=== PATIENT | female | born 1985 | race Caucasian/White ===

== ENCOUNTER → 2017-12-03 | Outpatient (REF) | payer OTHER ==
[2017-12-03 11:50] LABS: PLATELET COUNT, AUTOMATED 152 10^3/uL (150-450)
[2017-12-03 12:00] LABS: CONTROL LINE HCG INT CTR LINE PRESENT; HCG, SERUM QUALITATIVE NEGATIVE (NEGATIVE)
[2017-12-03 12:03] LABS: INR 0.96; PROTHROMBIN TIME 12.9 SECONDS (12.1-14.4)
[2017-12-03 12:04] LABS: PARTIAL THROMBOPLASTIN TIME 26.3 SECONDS (25.4-37.6)
== END ==
LOC: M LABDRAW1 10:35
DX: Z01.812 Encounter for preprocedural laboratory examination (principal)

== ENCOUNTER → 2019-04-12 | Outpatient (CLI) | payer OTHER ==
[~2019-04-12] MED LIST: CONRAY-43 43% 50ML VIAL (Q9960) As Ordered ONE; PROHANCE 279.3MG/ML 5ML VIAL (A9576) As Ordered ONE
--- NOTE | 2019-04-12 12:31 | REP ---
MR ARTHROGRAM RIGHT HIP: HISTORY: Pain in the right hip. Rule out labral tear. COMPARISON STUDIES: Comparison is made with CT imaging of the pelvis from July 12, 2013. . TECHNIQUE: Precontrast imaging includes coronal T1- and T2-weighted scans of both hips. Postcontrast small field of view high resolution axial, coronal and sagittal images are acquired in T1 and T2-weighted scans with fat saturation. MR ARTHROGRAPHIC FINDINGS: Pre-injection imaging demonstrates normal cortical and medullary bone signal intensity in the proximal femurs bilaterally. There is no evidence of avascular necrosis. There is a subcortical cyst along the medial aspect of the femoral head on the right. This measures 8 mm x 6 mm x 6 mm. This may be a synovial inclusion cyst. Head neck junction morphology is normal bilaterally. There is no evidence of significant hip joint effusion on either side. There is minimal T2 hyperintense edema at the greater trochanter bilaterally which may reflect minimal tendonitis. No bursal fluid collection is appreciated. On T2-weighted pre-injection imaging there is subtle inhomogeneous signal intensity in the articular cartilage which may reflect chondromalacia. There is a focal articular cartilage defect at 12-o'clock on the femoral head on the acetabular side of the hip articulation. Post-injection imaging shows good filling and enhancement of the hip articulation. No loose body is seen. No labral tear is seen. The ligamentum teres is intact. There is no evidence of internal enhancement of the subcortical cyst. IMPRESSION: 1. 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 No labral tear or loose body. 2. 8 mm subcortical cyst in the medial aspect of the femoral head on the right noted incidentally. 3. Thin streak of edema at the greater trochanter in the adjacent soft tissues bilaterally, question tendonitis. Electronically Signed by Jovanny Rose MD 04/12/2019 02:36 P
--- NOTE | 2019-04-12 19:37 | REP ---
Right hip arthrogram The procedure was performed under the direction supervision of Dr. Rose. The benefits and risks including but not limited to pain, infection, bleeding and anaphylaxis were explained to the patient and informed consent was obtained. The right femoral neck was localized using fluoroscopic guidance. Skin was prepped and draped in a sterile fashion. 1% lidocaine was used as a local anesthetic. Using fluoroscopic guidance a 22 gauge spinal needle was inserted and advanced to the femoral neck. 0.5 ml of Conray 43 was injected to verify placement. 11 ml of a solution containing 20 ml of sterile saline and 0.15 ml of ProHance was injected into the joint. The needle was removed and the patient was taken to MRI for postprocedural imaging. The patient tolerated the procedure well and there were no immediate complications. Less than 6 seconds of fluoro time was utilized for this procedure. Electronically Signed by ROSELYN Rodriguez 04/12/2019 04:10 P Electronically Signed by Jovanny Rose MD 04/12/2019 07:28 P
== END ==
LOC: M RADPRO 06:33
PROVIDERS: ATTEND Physician Assistant
DX: M94.251 Chondromalacia, right hip (principal); M85.68 Other cyst of bone, other site; M25.551 Pain in right hip
CPT/HCPCS: 27093; 73723; 77002; A9576; Q9960

== ENCOUNTER → 2019-04-28 | Outpatient (REF) | payer OTHER ==
[2019-04-28 14:00] LABS: BLOOD UREA NITROGEN 14 MG/DL (7-18); C REACTIVE PROTEIN QUANTITATIV 0.32 MG/DL (0.00-0.30); GLOMERULAR FILTRATION RATE > 60.0 (>60); RHEUMATOID FACTOR QUANT < 10.0 IU/ML (<15.0)
== END ==
LOC: M LABDRAW1 13:04
PROVIDERS: ATTEND Physician Assistant
DX: M53.3 Sacrococcygeal disorders, not elsewhere classified (principal)

== ENCOUNTER → 2019-07-19 | Outpatient (CLI) | payer OTHER ==
[2019-07-21 00:10] LABS: Lyme Disease IgG/IgM Antibodie <0.91 ISR (0.00-0.90); Lyme Disease IgM Ab Quantitati <0.80 index (0.00-0.79)
== END ==
LOC: M LAB 14:12
PROVIDERS: ATTEND Orthopaedic Surgery
DX: M25.551 Pain in right hip (principal)

== ENCOUNTER → 2019-07-19 | Outpatient (CLI) | payer OTHER | LOC: M LAB 14:15 | PROVIDERS: ATTEND Physician Assistant Surgical | DX: M70.62 Trochanteric bursitis, left hip (principal) ==

== ENCOUNTER → 2020-02-22 | Outpatient (CLI) | payer OTHER ==
--- NOTE | 2020-02-22 16:04 | REPVR ---
PROCEDURE INFORMATION: Exam: MR Lumbar Spine Without Contrast. Exam date and time: 02/22/2020 2:30 PM Age: 34 years old Clinical indication: Low back pain; Additional info: Spondylosis L region TECHNIQUE: Imaging protocol: Multiplanar magnetic resonance images of the lumbar spine without intravenous contrast. COMPARISON: No relevant prior studies available. FINDINGS: Vertebrae: No acute compression fracture is seen. Bone marrow signal is within normal limits. Spinal cord: The conus medullaris terminates at the L1 level. There is no evidence of arachnoiditis or cauda equina compression. L1-L2: There is mild diffuse circumferential disc bulging with a superimposed central disc protrusion. This is causing mild spinal canal stenosis. There is no significant neural foraminal narrowing. L2-L3: No significant disc disease. No significant spinal stenosis or neural foraminal narrowing. L3-L4: No significant disc disease.No significant spinal stenosis or neural foraminal narrowing. L4-L5: There is mild diffuse circumferential disc bulging with a superimposed left foraminal disc protrusion. Mild facet arthropathy is also present. This is causing minimal spinal canal stenosis and mild left neural foraminal narrowing. There is no right foraminal stenosis. L5-S1: There is mild facet arthropathy. No spinal canal or significant neural foraminal narrowing is present. Soft tissues: Unremarkable. IMPRESSION: Degenerative disc disease at the L1-L2 and L4-L5 levels as discussed above Electronically signed by: José Redd On 02/22/2020 16:04:51 PM
== END ==
LOC: M RAD 13:23
PROVIDERS: ATTEND Physician Assistant
DX: M47.816 Spondylosis without myelopathy or radiculopathy, lumbar region (principal); M51.26 Other intervertebral disc displacement, lumbar region; M51.36 Other intervertebral disc degeneration, lumbar region

== ENCOUNTER → 2020-11-07 | Outpatient (CLI) | payer OTHER, BC | LOC: M PLALAB 15:41 | PROVIDERS: ATTEND Advanced Practice Midwife | DX: Z34.81 Encounter for supervision of other normal pregnancy, first trimester (principal) ==

== ENCOUNTER → 2021-01-03 | Outpatient (CLI) | payer BC, OTHER ==
[2021-01-03 13:30] LABS: BASO % 0.4 % (0.0-1.0); EOS # 0.1 10^3/uL (0.0-0.5); EOS % 0.7 % (0.0-3.0); HEMATOCRIT 40.9 % (36.0-47.0); LYMPH # 2.3 10^3/uL (1.5-5.0); LYMPH % 22.9 % (24.0-44.0); MEAN CORPUSCULAR HEMOGLOBIN 31.3 pg (27.0-33.0); MEAN CORPUSCULAR HGB CONC 34.2 g/dl (32.0-36.5); MEAN CORPUSCULAR VOLUME 91.5 fl (80.0-96.0); MONO # 0.8 10^3/uL (0.0-0.8); MONO % 7.7 % (2.0-8.0); NEUTROPHILS # 6.8 10^3/uL (1.5-8.5); PLATELET COUNT, AUTOMATED 164 10^3/uL (150-450); RED BLOOD COUNT 4.47 10^6/uL (4.00-5.40); WHITE BLOOD COUNT 9.9 10^3/uL (4.0-10.0)
[2021-01-03 15:06] LABS: GC DNA AMPLIFICATION NEGATIVE (NEGATIVE)
[2021-01-03 15:08] LABS: HEPATITIS C VIRUS ABY INDEX < 0.0 INDEX (<0.8); HIV 1&2 SCREEN CENTAUR NEGATIVE (NEGATIVE)
== END ==
LOC: M PLALAB 10:22
PROVIDERS: ATTEND Obstetrics & Gynecology
DX: Z11.3 Encounter for screening for infections with a predominantly sexual mode of transmission (principal)

== ENCOUNTER → 2021-01-14 | Outpatient (CLI) | payer OTHER, BC ==
--- NOTE | 2021-01-14 16:46 | REP ---
INDICATION: MULTI OD ADVANCED MATERNAL AGE IN SECOND TRIMESTER. COMPARISON: None. TECHNIQUE: Real-time sonographic evaluation of the gravid uterus performed. FINDINGS: Estimated gestational age is22 weeks 1 day, EDC 05/19/2021. Today's measurements indicate appropriate growth. Presentation: Transverse Placenta posterior, grade 1, without evidence of placenta previa. heart rate is recorded at 149 beats per minute. Amniotic fluid is subjectively normal. Closed cervical length is measured at 4.1 cm. Biometry chart: BPD: 52 mm, 21 weeks 6 days, 44th percentile. HC: 197 mm, 21 weeks 6 days, 41st percentile AC: 177 mm, 22 weeks 4 days, 60th percentile Femur length: 37 mm, 21 weeks 5 days, 41st percentile HC to AC ratio: 1.11, normal range 1.04-1.23. Estimated weight: 42g, 46th percentile. anatomy: Cranium: Grossly normal Lateral Ventricles/Choroid Plexus: Grossly normal Posterior Fossa/Cerebellum: Grossly normal Nose/lips/profile: Grossly normal Four chamber heart: Not well seen due to position Right ventricular outflow tract: Not well seen due to position Left ventricular outflow tract: Not well seen due to position Left-sided stomach: Grossly normal Kidneys: Grossly normal Bladder: Grossly normal Cord Insertion: Grossly normal 3 vessel cord: Grossly normal Spine: Grossly normal IMPRESSION: Viable single intrauterine gestation as above. <Electronically signed by Cory Crooks > 01/14/21 0213
== END ==
LOC: M WHC 09:12
PROVIDERS: ATTEND Specialist
DX: Z36.3 Encounter for antenatal screening for malformations (principal); O09.522 Supervision of elderly multigravida, second trimester; Z3A.22 22 weeks gestation of pregnancy

== ENCOUNTER → 2021-02-13 | Outpatient (CLI) | payer OTHER, BC ==
--- NOTE | 2021-02-14 05:59 | REP ---
INDICATION: F/U ANATOMY COMPARISON: 01/14/2021 TECHNIQUE: Transabdominal obstetrical ultrasound with color Doppler evaluation. FINDINGS: Examination demonstrates a single live intrauterine in cephalic presentation. motion is identified by technologist. Placenta is noted posterior and grade 1 without evidence for placenta previa or abruption. Amniotic fluid volume is normal. Cervix measures 4.5 cm in length and appears closed.. Selected gestational age: 26 weeks 3 days with KLAUDIA 05/19/2021. Gestational age by current measurements 25 weeks 6 days with KLAUDIA 05/23/2021. FHR equals 142 beats per minute. Estimated weight 849 grams (17thpercentile). Anatomical assessment demonstrates normal structures including four-chamber heart and cardiac ventricular outflow tracts. IMPRESSION: Single live intrauterine in cephalic presentation demonstrating appropriate estimated weight/growth. In conjunction with prior examination anatomical assessment is complete and normal. <Electronically signed by Jony Weston > 02/14/21 [id number]
== END ==
LOC: M WHC 10:40
PROVIDERS: ATTEND Advanced Practice Midwife
DX: Z34.82 Encounter for supervision of other normal pregnancy, second trimester (principal)

== ENCOUNTER → 2021-02-13 | Outpatient (CLI) | payer OTHER ==
[2021-02-13 13:44] LABS: HEMATOCRIT 39.3 % (36.0-47.0); HEMOGLOBIN 13.3 g/dl (12.0-15.5); MEAN CORPUSCULAR HGB CONC 33.8 g/dl (32.0-36.5); MEAN CORPUSCULAR VOLUME 94.5 fl (80.0-96.0); PLATELET COUNT, AUTOMATED 135 10^3/uL (150-450); RED BLOOD COUNT 4.16 10^6/uL (4.00-5.40); WHITE BLOOD COUNT 7.7 10^3/uL (4.0-10.0)
== END ==
LOC: M PLALAB 11:18
PROVIDERS: ATTEND Advanced Practice Midwife
DX: Z34.92 Encounter for supervision of normal pregnancy, unspecified, second trimester (principal)

== ENCOUNTER 2021-02-23 14:47 | Inpatient (IN) | payer MEDICAID, OTHER ==
[~2021-02-23] VITALS: Ht 162.6 cm; Wt 83.1 kg
--- NOTE | 2021-02-23 16:58 | REP ---
INDICATION: L leg pain, 28 weeks preg COMPARISON: None. TECHNIQUE: Crooks scale and color Doppler evaluation using linear high frequency transducer. FINDINGS: Ultrasound examination of the left lower extremity demonstrates extensive occlusive thrombus extending from the common femoral vein distally through the superficial femoral and popliteal veins as well as with extension into the greater saphenous vein and deep femoral vein. Right common femoral vein is patent. IMPRESSION: Extensive left lower extremity occlusive thrombus <Electronically signed by Jony Weston > 02/23/21 [id number]
[2021-02-23 17:38] LABS: BASO % 0.2 % (0.0-1.0); EOS # 0.1 10^3/uL (0.0-0.5); EOS % 0.9 % (0.0-3.0); HEMOGLOBIN 11.5 g/dl (12.0-15.5); LYMPH # 1.8 10^3/uL (1.5-5.0); LYMPH % 17.4 % (24.0-44.0); MEAN CORPUSCULAR HEMOGLOBIN 31.6 pg (27.0-33.0); MEAN CORPUSCULAR HGB CONC 33.8 g/dl (32.0-36.5); MEAN CORPUSCULAR VOLUME 93.4 fl (80.0-96.0); MONO # 0.7 10^3/uL (0.0-0.8); MONO % 6.3 % (2.0-8.0); NEUTROPHILS # 7.8 10^3/uL (1.5-8.5); NEUTROPHILS % 74.5 % (36.0-66.0); PLATELET COUNT, AUTOMATED 149 10^3/uL (150-450); RED BLOOD COUNT 3.64 10^6/uL (4.00-5.40); WHITE BLOOD COUNT 10.4 10^3/uL (4.0-10.0)
[2021-02-23 17:49] LABS: INR 1.04; PROTHROMBIN TIME 14.1 SECONDS (12.7-14.5)
[2021-02-23 17:50] LABS: PARTIAL THROMBOPLASTIN TIME 25.9 SECONDS (25.9-37.0)
[2021-02-23] MEDS ORDERED: MORPHINE 2 MG/ML 1ML VIAL (J2270) IV ONE (17:50)
[2021-02-23] MEDS ORDERED: ONDANSETRON 4MG/2ML VIAL IV ONE (17:50)
[2021-02-23 18:04] LABS: ALBUMIN 2.5 GM/DL (3.2-5.2); ALT/SGPT 19 U/L (12-78); BILIRUBIN,TOTAL 0.5 MG/DL (0.2-1.0); BLOOD UREA NITROGEN 9 MG/DL (7-18); CALCIUM LEVEL 9.1 MG/DL (8.5-10.1); CARBON DIOXIDE LEVEL 23 MEQ/L (21-32); CHLORIDE LEVEL 105 MEQ/L (98-107); CREATININE FOR GFR 0.58 MG/DL (0.55-1.30); GLOMERULAR FILTRATION RATE > 60.0 (>60); GLUCOSE, FASTING 109 MG/DL (70-100); NT-PRO BNP 36 PG/ML (<125); POTASSIUM SERUM 4.1 MEQ/L (3.5-5.1); SODIUM LEVEL 136 MEQ/L (136-145); TOTAL PROTEIN 6.4 GM/DL (6.4-8.2)
[2021-02-23] MEDS ORDERED: PRENCHW PO (19:00)
[2021-02-23] MEDS ORDERED: HOME MED LIST COMPLETE! XX SCH (19:05)
[2021-02-23] MEDS ORDERED: HEPARIN SOD (PORCINE) 5000UNITS/ML 1ML VIAL/SYRINGE IV ONE (19:10)
[2021-02-23] MEDS ORDERED: HEPARIN SOD (PORCINE) 5000UNITS/ML 1ML VIAL/SYRINGE IV PRN (19:10)
[2021-02-23] MEDS: LR 1,000 ML IV SCH (19:21)
--- NOTE | 2021-02-23 19:27 | CR.PDOC ---
General Date of Consultation: Feb 23, 2021 Referring Provider: DONY GOODMAN DO Consultation REASON FOR CONSULTATION/CHIEF COMPLAINT: Heparin management. HISTORY OF PRESENT ILLNESS: Mrs. Bradshaw is a 35-year-old female with osteoarthritis of the hip who presents with worsening left leg pain. Patient is currently 28 weeks with her third . About a few days ago, she started to have left leg pain. She denies any recent travel, surgeries, hospitalizations, or trauma to the left leg. She came into the ED for evaluation. While here, she was afebrile and normotensive. She was tachycardic at 117 but no hypoxia. Ultrasound of the left leg demonstrated extensive left lower extremity occlusive thrombus. As patient was 28 weeks , AUTOMOTIVE PARTS INTERPRETER was contacted. In addition, vascular surgery, Dr. Nunez, was consulted. Dr. Nunez recommended heparin bolus with heparin drip, Oliver wrap from toes up, and leg elevation. He will evaluate the patient tonight and tomorrow morning. If there is no improvement in the leg, he will consider possible surgery. AUTOM[employer]IVE [employer]S INTERPRETER requested hospitalist service to manage heparin drip. I spoke with AUTOMOTIVE PARTS INTERPRETER and they are okay with heparin drip. When I saw patient in the ED, she appeared comfortable. She had just gotten morphine. Her left leg had pitting edema and was swollen. Right leg did not have any pitting edema. Looking at her toes on the left, they had a dusky bluish appearance. There is a little bit of discoloration on the right as well. She had good pedal pulses. Hospital service will be consulted to help manage the heparin drip. ALLERGIES: Please see below. HOME MEDICATIONS: Please see below. PAST MEDICAL HISTORY: 1. Osteoarthritis PAST SURGICAL HISTORY: Denies any past surgical history FAMILY HISTORY: Father: History of cancer, 5 MIs, and 3 CVAs Mother: History of hyperlipidemia SOCIAL HISTORY: Tobacco use: She quit smoking 1 year ago ETOH: She stopped drinking alcohol when she got . Prior to , she occasionally drinks Illicit drug use: Denies any recreational drug use REVIEW OF SYSTEMS: CONSTITUTIONAL: Denies any fever. Reported an episode of chills yesterday. ENT: Denies sore throat. RESPIRATORY: Denies shortness of breath. Denies cough. CARDIOVASCULAR: Denies chest pain. GASTROINTESTINAL: Reports related abdominal pain. GENITOURINARY: Denies dysuria. CUTANEOUS: Denies rashes. MUSCULOSKELETAL: Reports swelling and tenderness in her left leg. NEUROLOGICAL: Reports paresthesias in her left leg. PSYCHOLOGICAL: Denies anxiety. Denies depression. PHYSICAL EXAMINATION: VITAL SIGNS: Please see below. GENERAL: Comfortable, in no apparent distress. HEENT: EOMI, sclera clear. NECK: Supple. RESPIRATORY: Lungs clear to auscultation bilaterally, no rales, wheeze or rhonchi. CARDIOVASCULAR: Tachycardic but regular. ABDOMEN: Soft, nontender, no guarding or rebound tenderness. Normal bowel sounds. MUSCLE SKELETAL: Left leg 2+ pitting edema. No pitting edema on right leg NEUROLOGICAL: CN 3-12 grossly intact, no focal deficits noted. PSYCHOLOGICAL: Normal mood and affect LABORATORY DATA: Please see below. ASSESSMENT/PLAN: 1. Left leg DVT Vascular surgery following Recommending heparin bolus with heparin drip, Oliver wrapping from feet to toes, and leg elevation If there is no improvement, vascular surgery would consider procedure Start heparin drip Monitor for signs of bleeding Monitor CBC Hypercoagulable work-up initiated 2. AUTOM[employer]S INTERPRETER is primary 3. Osteoarthritis Patient was following with orthopedic surgery for osteoarthritis of the hips Supportive care and pain control 4. DVT prophylaxis Currently on heparin drip Thank you for consulting us. We will continue following along. Vital Signs/I&O Vital Signs Date Time Temp Pulse Resp B/P (MAP) Pulse Ox O2 Delivery O2 Flow Rate FiO2 02/23/21 18:21 18 02/23/21 14:48 98.2 117 135/72 (93) 100 Room Air Laboratory Data Labs 24H Laboratory Tests 2 02/23/21 17:24: Immature Granulocyte % (Auto) 0.7, Neutrophils (%) (Auto) 74.5H, Lymphocytes (%) (Auto) 17.4L, Monocytes (%) (Auto) 6.3, Eosinophils (%) (Auto) 0.9, Basophils (%) (Auto) 0.2, Neutrophils # (Auto) 7.8, Lymphocytes # (Auto) 1.8, Monocytes # (Auto) 0.7, Eosinophils # (Auto) 0.1, Basophils # (Auto) 0.0, Nucleated Red Bloo d Cells % (auto) 0.0, Prothrombin Time 14.1H, Prothromb Time International Ratio 1.04, Activated Partial Thromboplast Time 25.9, Anion Gap 8, Glomerular Filtration Rate > 60.0, Calcium Level 9.1, Total Bilirubin 0.5, Aspartate Amino Transf (AST/SGOT) 13, Alanine Aminotransferase (ALT/SGPT) 19, Alkaline Phosphatase 117, JP-Sja-S-Type Natriuretic Peptide 36, Total Protein 6.4, Albumin 2.5L, Albumin/Globulin Ratio 0.6L, Coronavirus (COVID-19)(PCR) NEGATIVE CBC/BMP Laboratory Tests 02/23/21 17:24 Allergies Coded Allergies: No Known Allergies (Unverified , 02/23/21) Home Medications Scheduled Pnv No.118/Iron Fumarate/FA ( 19 Chewable Tablet) 1 Each Tab.chew, 1 CHW PO DAILY, (Reported) MAJO SAINZ DO Feb 23, 2021 19:27
--- NOTE | 2021-02-23 19:34 | ECGEPIP ---
[facility] - ED Test Date: 2021-02-23 Pat Name: RADHA CARMICHAEL Department: Room: - Gender: Female Density Control Puncher: FRANCHESCA : 1985 Requested By: Lyn Kruse PA-C Order Number: [id number] Reading MD: Anamika Friedman Measurements Intervals [place] Rate: 96 P: 51 MA: 150 QRS: 35 QRSD: 72 T: 29 QT: 342 QTc: 432 Interpretive Statements Normal sinus rhythm NSTTW abnormalities No prior Electronically Signed on 02-23-2021 19:34:12 EST by Anamika Friedman
--- NOTE | 2021-02-23 19:36 | HPEPDOC ---
Obstetrical History & Physical General Date of Admission History of Present Illness PAVING BLOCK CUTTER H&P 35-year-old -0-0-2 at 27+6 weeks gestation. She presented to the emergency department with worsening left lower extremity pain and swelling over the past several days. Her work-up in the ED revealed evidence of a large left deep vein thrombosis (see official report). She has minor intermittent pelvic pain, but denies any contractions. Denies any vaginal bleeding or loss of fluid. She is reporting her baby's movement on a frequent basis. No headache, shortness of breath, chest pain, fever, chills. PMH: osteoarthritis SH:none Meds: PNV All: NKDA HOT PACKER: No STI OB: 2002,. 2009,. Both uncomplicated. Sochx: former smoker; states she quit 6-12 months prior to Past Medical History Allergies Coded Allergies: No Known Allergies (Unverified , 02/23/21) Medications Scheduled Pnv No.118/Iron Fumarate/FA ( 19 Chewable Tablet) 1 Each Tab.chew, 1 CHW PO DAILY Physical Examination Physical Examination Normotensive, mild tachycardia, afebrile. O2 sat on RA 96-100% GENERAL: Alert and oriented times three.. ABDOMEN: Gravid and non-tender to touch. Uterine fundal height c/w/d and nontender. EXTREMITIES: left lower ext edema, 2+ pitting edema, +Joey's on left. EFM: heart rate Category 1; reassuring. [place]: no evidence of contraction pattern. Left lower extremity DVT / US INDICATION: L leg pain, 28 weeks preg COMPARISON: None. TECHNIQUE: Crooks scale and color Doppler evaluation using linear high frequency transducer. FINDINGS: Ultrasound examination of the left lower extremity demonstrates extensive occlusive thrombus extending from the common femoral vein distally through the superficial femoral and popliteal veins as well as with extension into the greater saphenous vein and deep femoral vein. Right common femoral vein is patent. IMPRESSION: Extensive left lower extremity occlusive thrombus Vital Signs/I&O Vital Signs Date Time Temp Pulse Resp B/P (MAP) Pulse Ox O2 Delivery O2 Flow Rate FiO2 02/23/21 18:21 18 02/23/21 14:48 98.2 117 135/72 (93) 100 Room Air Laboratory Data 24H LABS Laboratory Tests 2 02/23/21 17:24: Immature Granulocyte % (Auto) 0.7, Neutrophils (%) (Auto) 74.5H, Lymphocytes (%) (Auto) 17.4L, Monocytes (%) (Auto) 6.3, Eosinophils (%) (Auto) 0.9, Basophils (%) (Auto) 0.2, Neutrophils # (Auto) 7.8, Lymphocytes # (Auto) 1.8, Monocytes # (Auto) 0.7, Eosinophils # (Auto) 0.1, Basophils # (Auto) 0.0, Nucleated Red Blood Cells % (auto) 0.0, Prothrombin Time 14.1H, Prothromb Time International Ratio 1.04, Activated Partial Thromboplast Time 25.9, Anion Gap 8, Glomerular Filtration Rate > 60.0, Calcium Level 9.1, Total Bilirubin 0.5, Aspartate Amino Transf (AST/SGOT) 13, Alanine Aminotransferase (ALT/SGPT) 19, Alkaline Phosphatase 117, HB-Xgt-L-Type Natriuretic Peptide 36, Total Protein 6.4, Albumin 2.5L, Albumin/Globulin Ratio 0.6L, Coronavirus (COVID-19)(PCR) NEGATIVE CBC/BMP Laboratory Tests 02/23/21 17:24 Assessment/Plan Assessment 35yo at 27+6 weeks EGA with newly diagnosed VTE/left lower ext DVT. Maternal status currently stable. status reassuring. Plan -Admit to PCU -Will collaborate with Hospitalist and Vascular Surgery ; defer to these consultants for initial anticoagulation plan/dosing. Patient counseled on acceptable safety profile and on risks, benefits, indications, and alternatives of unfractionated heparin during . -cEFM/[place] every 8 hours or more frequent as indicated. -Of note, a full thrombophilia lab panel was drawn in the ED. The usefulness of protein C and S as well as antithrombin III levels may be inhibited by the fact that this patient is . She should be retested no sooner than 3 months /post- and/or post-anticoagulation. DONY GOODMAN DO Feb 23, 2021 19:36
[2021-02-23] MEDS: HEPARIN DRIP 25,000 UNITS in IV 1 EA IV SCH ×2 (19:48→22:18)
--- NOTE | 2021-02-23 21:22 | CR.PDOC ---
General Date of Consultation: Feb 23, 2021 Attending Physician: RAVINDRA RUTHERFORD MD Consultation REASON FOR CONSULTATION/CHIEF COMPLAINT: LLE pain/swelling HISTORY OF PRESENT ILLNESS: 35 yo female, 28 wks with child #3, presents with 24hrs of worsening LLE swelling/pain. Denies any other symptoms. Denies CP/SOB. No history of DVT/PE in patient or family members. No issues with prior pregnancies with regards to DVT. Previous children via vaginal delivery. ALLERGIES: Please see below. HOME MEDICATIONS: Please see below. PAST MEDICAL HISTORY: 1. Hip Dysplasia PAST SURGICAL HISTORY: N/A FAMILY HISTORY: Nothing relevant SOCIAL HISTORY: Children: 2 REVIEW OF SYSTEMS: Negative except as stated PHYSICAL EXAMINATION: LLE: Moderate edema, palpable pulses, motor/sensory intact LABORATORY DATA: Please see below. IMAGING: LLE Venous Duplex demonstrates acute LLE DVT from left CFV distally ASSESSMENT/PLAN: 1. 35 yo female with acute LLE DVT without signs of phlegmasia -Full dose AC with IV heparin bolus and gtt -bipin wrap/elevate LLE -will re-eval in AM with plan for d/c on lovenox vs pursuing percutaneous intervention Vital Signs/I&O Vital Signs Date Time Temp Pulse Resp B/P (MAP) Pulse Ox O2 Delivery O2 Flow Rate FiO2 02/23/21 19:18 98.3 92 18 121/70 (87) 100 Room Air Laboratory Data Labs 24H Laboratory Tests 2 02/23/21 17:24: Immature Granulocyte % (Auto) 0.7, Neutrophils (%) (Auto) 74.5H, Lymphocytes (%) (Auto) 17.4L, Monocytes (%) (Auto) 6.3, Eosinophils (%) (Auto) 0.9, Basophils (%) (Auto) 0.2, Neutrophils # (Auto) 7.8, Lymphocytes # (Auto) 1.8, Monocytes # (Auto) 0.7, Eosinophils # (Auto) 0.1, Basophils # (Auto) 0.0, Nucleated Red Blood Cells % (auto) 0.0, Prothrombin Time 14.1H, Prothromb Time International Ratio 1.04, Activated Partial Thromboplast Time 25.9, Anion Gap 8, Glomerular Filtration Rate > 60.0, Calcium Level 9.1, Total Bilirubin 0.5, Aspartate Amino Transf (AST/SGOT) 13, Alanine Aminotransferase (ALT/SGPT) 19, Alkaline Phosphatase 117, LY-Jvx-O-Type Natriuretic Peptide 36, Total Protein 6.4, Albumin 2.5L, Albumin/Globulin Ratio 0.6L, Coronavirus (COVID-19)(PCR) NEGATIVE 02/23/21 20:08: Activated Partial Thromboplast Time 180.3*H CBC/BMP Laboratory Tests 02/23/21 17:24 Allergies Coded Allergies: No Known Allergies (Unverified , 02/23/21) Home Medications Scheduled Pnv No.118/Iron Fumarate/FA ( 19 Chewable Tablet) 1 Each Tab.chew, 1 CHW PO DAILY, (Reported) RAVINDRA RUTHERFORD MD Feb 23, 2021 21:22
[2021-02-23 21:35] VITALS: BP 118/70
[2021-02-24] VITALS: BP 113/62
[2021-02-24] MEDS: MORPHINE 2 MG/ML 1ML VIAL (J2270) IV PRN ×3 (01:20→11:06)
[2021-02-24 03:50] LABS: HEMATOCRIT 29.9 % (36.0-47.0); HEMOGLOBIN 10.2 g/dl (12.0-15.5); MEAN CORPUSCULAR HGB CONC 34.1 g/dl (32.0-36.5); MEAN CORPUSCULAR VOLUME 93.7 fl (80.0-96.0); PLATELET COUNT, AUTOMATED 145 10^3/uL (150-450); RED BLOOD COUNT 3.19 10^6/uL (4.00-5.40); WHITE BLOOD COUNT 8.6 10^3/uL (4.0-10.0)
[2021-02-24 04:00] VITALS: BP 108/62
[2021-02-24] MEDS: LR 1,000 ML IV SCH ×2 (04:01→04:46)
[2021-02-24 04:40] LABS: BLOOD UREA NITROGEN 11 MG/DL (7-18); CALCIUM LEVEL 8.4 MG/DL (8.5-10.1); CARBON DIOXIDE LEVEL 22 MEQ/L (21-32); CHLORIDE LEVEL 106 MEQ/L (98-107); CREATININE FOR GFR 0.57 MG/DL (0.55-1.30); GLOMERULAR FILTRATION RATE > 60.0 (>60); GLUCOSE, FASTING 106 MG/DL (70-100); SODIUM LEVEL 135 MEQ/L (136-145)
[2021-02-24 07:53] VITALS: BP 108/66
--- NOTE | 2021-02-24 11:17 | IPNPDOC ---
Date Seen The patient was seen on 02/24/21. Subjective 35 yo female, 28wks with acute LLE DVT. Improvement in pain/swelling overnight since initiation of anticoagulation. Physical Examination General Exam: Positive: Alert, No Acute Distress; Negative: Cooperative, Mild Distress, Moderate Distress, Severe Distress, Other Eye Exam: Negative: PERRLA, Conjunctiva & lids normal, EOMI, Sclera icteric, Ptosis, Other Eye Symptoms ENT Exam: Negative: Atraumatic, Mucous membr. moist/pink, Pharynx Normal, Tongue Midline, Pharyngeal Edema, Nares Patent, Tympanic Membranes Normal, Ext Auditory Canal Nml, Pinna Normal, Other ENT Neck Exam: Negative: Supple, JVD, thyromegaly, +2 carotid pulse wo bruit, Lymphadenopathy, Other Chest Exam: Negative: Clear to auscultation, Normal air movement, Rales, Rhonchi, Wheezing, Diminished, Other Heart Exam: Negative: Rate Normal, Tachycardic, Bradycardic, Regular Rhythm, Irregular Rhythm, Normal S1, Normal S2, Gallops, Murmurs, Rubs, Other Telemetry: Negative: No significant arrhythmia, Sinus, Atrial fibrillation, Tachycardia, Bradycardia, AV Block, Pause, SV Tach, PVCs, PACs, Asystole, Other Telemetry: Abdomen Exam: Positive: Normal bowel sounds Extremity Exam: Positive: Swelling (LLE swelling); Negative: Clubbing, Cyanosis, Edema, Normal pulses, Tenderness, Other Skin Exam: Positive: Nl turgor and temperature; Negative: Rash, Breakdown Neuro Exam: Negative: Normal Gait, Normal Speech, Strength at 5/5 X4 ext, Normal Tone, Sensation Intact, Cranial Nerves 3-12 NL, Reflexes 2+, Other Psych Exam: Negative: Mental status NL, Mood NL, Anxiety, Memory Intact, Oriented x 3, Other Assessment/Plan 35 yo female with acute LLE DVT Ok to transition to therapeutic lovenox and discharge home Continue LLE compression/elevation f/u with [facility] and/or hematology will require 3-6 months of anticoagulation If leg swelling/pain persists in 3-6 months, recommend re-eval by Vascular Surgeon for possible percutaneous intervention for Post-Thrombotic syndrome VS, I&O, 24H, Fishbone Vital Signs/I&O Vital Signs Date Time Temp Pulse Resp B/P (MAP) Pulse Ox O2 Delivery O2 Flow Rate FiO2 12/20/21 07:53 98.0 91 16 108/66 (80) 97 Room Air I&O- Last 24 Hours up to 6 AM 02/24/21 06:00 Intake Total 610 ml Output Total 300 ml Balance 310 ml Laboratory Data 24H LABS Laboratory Tests 2 02/23/21 17:24: Immature Granulocyte % (Auto) 0.7, Neutrophils (%) (Auto) 74.5H, Lymphocytes (%) (Auto) 17.4L, Monocytes (%) (Auto) 6.3, Eosinophils (%) (Auto) 0.9, Basophils (%) (Auto) 0.2, Neutrophils # (Auto) 7.8, Lymphocytes # (Auto) 1.8, Monocytes # (Auto) 0.7, Eosinophils # (Auto) 0.1, Basophils # (Auto) 0.0, Nucleated Red Blood Cells % (auto) 0.0, Prothrombin Time 14.1H, Prothromb Time International Ratio 1.04, Activated Partial Thromboplast Time 25.9, Anion Gap 8, Glomerular Filtration Rate > 60.0, Calcium Level 9.1, Total Bilirubin 0.5, Aspartate Amino Transf (AST/SGOT) 13, Alanine Aminotransferase (ALT/SGPT) 19, Alkaline Phosphatase 117, EL-Jsu-H-Type Natriuretic Peptide 36, Total Protein 6.4, Albumin 2.5L, Albumin/Globulin Ratio 0.6L, Coronavirus (COVID-19)(PCR) NEGATIVE 02/23/21 20:08: Activated Partial Thromboplast Time 180.3*H 02/24/21 03:34: Nucleated Red Blood Cells % (auto) 0.0, Activated Partial Thromboplast Time 39.2H, Anion Gap 7L, Glomerular Filtration Rate > 60.0, Calcium Level 8.4L CBC/BMP Laboratory Tests 02/23/21 17:24 02/24/21 03:34 RAVINDRA RUTHERFORD MD Feb 24, 2021 11:17
[2021-02-24 12:00] VITALS: BP 125/74
[2021-02-24] MEDS ORDERED: ENOXAPARIN 80MG/0.8ML SYRINGE (J1650 PER 10MG) SC SCH (12:00)
[2021-02-24] MEDS ORDERED: LOVE0.6I2 SC (12:48)
[2021-02-24] MEDS ORDERED: BD SMIS8 XX (12:48)
[2021-02-24] MEDS ORDERED: ALCO1PAD EX (12:48)
--- NOTE | 2021-02-24 14:27 | DS.PDOC ---
Discharge Summary General Date of Admission Feb 23, 2021 at 18:56 Date of Discharge 02/24/21 Attending Physician: DONY GOODMAN DO Specialist/Consultants Involve: RAVINDRA RUTHERFORD MD Discharge Summary PROCEDURES PERFORMED DURING STAY: [None]. ADMITTING DIAGNOSES: 1. . DISCHARGE DIAGNOSES: 1. . COMPLICATIONS/CHIEF COMPLAINT: 27-28 Completed Wks Of Gestation, Dvt. HISTORY OF PRESENT ILLNESS: . HOSPITAL COURSE: . DISCHARGE MEDICATIONS: Please see below. ALLERGIES: Please see below. PHYSICAL EXAMINATION ON DISCHARGE: VITAL SIGNS: Please see below. GENERAL: HEENT: NECK: CARDIOVASCULAR EXAMINATION: RESPIRATORY EXAMINATION: ABDOMINAL EXAMINATION: EXTREMITIES: SKIN: NEUROLOGICAL EXAMINATION: PSYCHIATRIC EXAMINATION: LABORATORY DATA: Please see below. IMAGING: PROGNOSIS: ACTIVITY: [As tolerated]. DIET: DISCHARGE PLAN: DISPOSITION: . DISCHARGE INSTRUCTIONS: 1. . ITEMS TO FOLLOWUP ON ON OUTPATIENT: 1. . DISCHARGE CONDITION: [Stable]. TIME SPENT ON DISCHARGE: minutes. Vital Signs/I&Os Vital Signs Date Time Temp Pulse Resp B/P (MAP) Pulse Ox O2 Delivery O2 Flow Rate FiO2 02/24/21 12:00 97.8 94 18 125/74 (91) 98 Room Air I&O- Last 24 Hours up to 6 AM 02/24/21 06:00 Intake Total 610 ml Output Total 300 ml Balance 310 ml Laboratory Data Labs 24H Laboratory Tests 2 02/23/21 17:24: Immature Granulocyte % (Auto) 0.7, Neutrophils (%) (Auto) 74.5H, Lymphocytes (%) (Auto) 17.4L, Monocytes (%) (Auto) 6.3, Eosinophils (%) (Auto) 0.9, Basophils (%) (Auto) 0.2, Neutrophils # (Auto) 7.8, Lymphocytes # (Auto) 1.8, Monocytes # (Auto) 0.7, Eosinophils # (Auto) 0.1, Basophils # (Auto) 0.0, Nucleated Red Blood Cells % (auto) 0.0, Prothrombin Time 14.1H, Prothromb Time International Ratio 1.04, Activated Partial Thromboplast Time 25.9, Anion Gap 8, Glomerular Filtration Rate > 60.0, Calcium Level 9.1, Total Bilirubin 0.5, Aspartate Amino Transf (AST/SGOT) 13, Alanine Aminotransferase (ALT/SGPT) 19, Alkaline Phosphatase 117, QR-Xtu-L-Type Natriuretic Peptide 36, Total Protein 6.4, Albumin 2.5L, Albumin/Globulin Ratio 0.6L, Coronavirus (COVID-19)(PCR) NEGATIVE 02/23/21 20:08: Activated Partial Thromboplast Time 180.3*H 02/24/21 03:34: Nucleated Red Blood Cells % (auto) 0.0, Activated Partial Thromboplast Time 39.2H, Anion Gap 7L, Glomerular Filtration Rate > 60.0, Calcium Level 8.4L 02/24/21 10:57: Activated Partial Thromboplast Time 55.7H CBC/BMP Laboratory Tests 02/23/21 17:24 02/24/21 03:34 Discharge Medications Scheduled Alcohol Antiseptic Pads (Alcohol Prep Pads) 1 Each Med..pad, 70 % EX BID Enoxaparin Sodium (Lovenox) 80 Mg/0.8 Ml Syringe, 80 MG SC Q12H Pnv No.118/Iron Fumarate/FA ( 19 Chewable Tablet) 1 Each Tab.chew, 1 CHW PO DAILY, (Reported) Allergies Coded Allergies: No Known Allergies (Unverified , 02/23/21) JING MCNEAL CNM Feb 24, 2021 14:27
[2021-02-26 11:20] LABS: DRVV SCREEN 44.9 SEC
[2021-02-26 11:24] LABS: PTT LUPUS TYPE ANTICOAG SCREEN 1.2 (0-1.2)
[2021-02-26 11:31] LABS: DRVV CONFIRM 36.1 SEC; LUPUS CONFIRM RATIO 0.9
[2021-02-26 11:33] LABS: NORMALIZED RATIO 1.33 (0.00-1.20)
== END 2021-02-24 17:10 | disposition home or self-care (01) | DRG 566 ==
LOC: M ED 14:47 → M ED INP 18:56 → ENRESERV 19:40 → M PCU 21:33
PROVIDERS: ADMIT Obstetrics & Gynecology; ATTEND Obstetrics & Gynecology
DX: O22.32 Deep phlebothrombosis in pregnancy, second trimester (principal); I82.412 Acute embolism and thrombosis of left femoral vein; I82.432 Acute embolism and thrombosis of left popliteal vein; Z3A.27 27 weeks gestation of pregnancy; Z87.891 Personal history of nicotine dependence; M16.0 Bilateral primary osteoarthritis of hip; O26.892 Other specified pregnancy related conditions, second trimester

== ENCOUNTER → 2021-04-10 | Outpatient (CLI) | payer OTHER ==
[~2021-04-10] MED LIST changes: +ALCO1PAD EX; +BD SMIS8 XX; -CONRAY-43 43% 50ML VIAL (Q9960) As Ordered ONE; +LOVE0.6I2 SC; +PRENCHW PO; -PROHANCE 279.3MG/ML 5ML VIAL (A9576) As Ordered ONE
== END ==
LOC: M LAB 07:49
PROVIDERS: ATTEND Advanced Practice Midwife
DX: O99.810 Abnormal glucose complicating pregnancy (principal)

== ENCOUNTER → 2021-04-21 | Outpatient (REF) | payer OTHER ==
[~2021-04-21] MED LIST changes: +EXCETAB33 PO
== END ==
LOC: M SFHCWAGY 16:54
PROVIDERS: ATTEND Obstetrics & Gynecology
DX: Z36.89 Encounter for other specified antenatal screening (principal); Z3A.36 36 weeks gestation of pregnancy

== ENCOUNTER → 2021-04-24 | Outpatient (CLI) | payer OTHER ==
[2021-04-24 10:46] LABS: INR 0.9; PROTHROMBIN TIME 12.6 SECONDS (12.7-14.5)
[2021-04-24 10:47] LABS: PARTIAL THROMBOPLASTIN TIME 33.8 SECONDS (25.9-37.0)
== END ==
LOC: M PLALAB 08:45
PROVIDERS: ATTEND Obstetrics & Gynecology
DX: D68.51 Activated protein C resistance (principal)

== ENCOUNTER 2021-05-12 07:45 | Inpatient (IN) | payer OTHER ==
[2021-05-12] VITALS (14 sets, daily range): BP systolic 111–140; BP diastolic 66–86
[~2021-05-12] VITALS: Ht 162.6 cm; Wt 84.3 kg
[2021-05-12] MEDS ORDERED: EXCETAB33 PO (08:05)
[2021-05-12] MEDS ORDERED: LACTATED RINGER'S 1000 ML IV STA ×2 (08:48→16:22)
[2021-05-12] MEDS ORDERED: METHYLERGONOVINE MALEATE 0.2 MG/ML VIAL (J2210) IM PRN ×2 (08:50→17:40)
[2021-05-12] MEDS ORDERED: TRANEXAMIC ACID INJection 1,000 MG in NS 100 ML IV PRN (08:50)
[2021-05-12] MEDS ORDERED: LIDOCAINE 1% MDV 20ML VIAL INFIL PRN (08:50)
[2021-05-12] MEDS ORDERED: OXYTOCIN DRIP 30 UNITS in IV 1 EA IV PRN (08:50)
[2021-05-12] MEDS ORDERED: CARBOPROST TROMETHAMINE 250 MCG/ML AMP IM PRN (08:50)
[2021-05-12] MEDS ORDERED: HOME MED LIST COMPLETE! XX SCH (08:55)
[2021-05-12] MEDS ORDERED: miSOPROStol 50MCG 1/2 TABLET PO ONE (09:05)
[2021-05-12 09:38] LABS: HEMATOCRIT 37.9 % (36.0-47.0); HEMOGLOBIN 13.2 g/dl (12.0-15.5); MEAN CORPUSCULAR HEMOGLOBIN 31.7 pg (27.0-33.0); MEAN CORPUSCULAR HGB CONC 34.8 g/dl (32.0-36.5); MEAN CORPUSCULAR VOLUME 90.9 fl (80.0-96.0); PLATELET COUNT, AUTOMATED 105 10^3/uL (150-450); RED BLOOD COUNT 4.17 10^6/uL (4.00-5.40); WHITE BLOOD COUNT 8.5 10^3/uL (4.0-10.0)
[2021-05-12 09:51] LABS: INR 0.86; PARTIAL THROMBOPLASTIN TIME 28.6 SECONDS (25.9-37.0); PROTHROMBIN TIME 12.1 SECONDS (12.7-14.5)
[2021-05-12] MEDS ORDERED: HEPA10009 SUBQ (09:59)
[2021-05-12] MEDS ORDERED: miSOPROStol 50MCG 1/2 TABLET PO SCH (13:00)
[2021-05-12] MEDS ORDERED: LR 1,000 ML IV SCH ×2 (16:00→16:25)
[2021-05-12] MEDS ORDERED: TERBUTALINE SULFATE 1 MG/ML VIAL (J3105) As Ordered ONE (16:20)
[2021-05-12] MEDS ORDERED: TERBUTALINE SULFATE 1 MG/ML VIAL (J3105) SC STA (16:20)
[2021-05-12] MEDS ORDERED: ceFAZolin SOD 2 GM in IV 1 EA IV ONE (16:25)
[2021-05-12] MEDS ORDERED: BICITRA 30ML SOLN UDC PO ONE (16:25)
[2021-05-12] MEDS ORDERED: MORPHINE PRES-FREE INJ 10 MG/10 ML VIAL (J2274) As Ordered ONE (16:55)
[2021-05-12] MEDS ORDERED: MORPHINE 4 MG/ML 1ML VIAL/SYRINGE (J2270) IV PRN (17:40)
[2021-05-12] MEDS ORDERED: ONDANSETRON 4MG/2ML VIAL IV PRN ×3 (17:40→18:55)
[2021-05-12] MEDS ORDERED: RHOGAM 300 MCG (1500 IU) INJ (J2790) IM SCH (17:40)
[2021-05-12] MEDS ORDERED: MOM 30ML SUSPENSION UDC PO PRN (17:40)
[2021-05-12] MEDS ORDERED: MEASLES,MUMPS,RUBELLA VACCINE INJ (MMR-II) (90707) SC SCH (17:40)
[2021-05-12] MEDS ORDERED: OXYTOCIN DRIP 30 UNITS in IV 1 EA IV SCH (17:40)
[2021-05-12] MEDS ORDERED: diphenhydrAMINE 50MG/ML VIAL (J1200) IV PRN (17:42)
[2021-05-12] MEDS ORDERED: METOCLOPRAMIDE INJ 10MG/2ML VIAL (J2765 PER 1) IV PRN (17:42)
[2021-05-12] MEDS ORDERED: NALOXONE INJ 0.4MG/1ML VIAL (J2310 PER 1MG) IV PRN ×2 (17:42)
[2021-05-12] MEDS ORDERED: NALBUPHINE HCL 10 MG/ML AMP (J2300) IV PRN ×2 (17:42→18:55)
[2021-05-12 18:09] LABS: CORD GAS ABE A -5.5; CORD GAS ABE V -4.2; CORD GAS HCO3 A 23.2 MEQ/L; CORD GAS HCO3 V 22.9 MEQ/L; CORD GAS O2 SAT A 25.8 %; CORD GAS O2 SAT V 41.8 %; CORD GAS PCO2 A 57.5 mmHg; CORD GAS PCO2 V 49.1 mmHg; CORD GAS PH A 7.223 UNITS; CORD GAS PH V 7.287 UNITS; CORD GAS PO2 A 15.3 mmHg; CORD GAS PO2 V 19.2 mmHg; CORD GAS SBC A 18.2 MEQ/L; CORD GAS SBC V 19.6 MEQ/L; CORD GAS TCO2 A 24.9 MEQ/L; CORD GAS TCO2 V 24.4 MEQ/L
[2021-05-12] MEDS ORDERED: KETOROLAC 60MG 2ML VIAL As Ordered ONE (18:36)
[2021-05-12] MEDS ORDERED: ONDANSETRON 4MG/2ML VIAL As Ordered ONE (18:47)
[2021-05-12] MEDS ORDERED: OXYTOCIN 30 UNITS IN 0.9% NaCl 500ML IV BAG (J2590) As Ordered ONE (18:48)
[2021-05-12] MEDS ORDERED: HYDROMORPHONE HCL 0.5 MG/ 0.5 ML SYRINGE (J1170 PER 1) IV PRN (18:55)
[2021-05-12] MEDS ORDERED: fentaNYL 100 MCG/2 ML INJECTION IV PRN (18:55)
[2021-05-12] MEDS ORDERED: oxyCODONE 5MG TAB PO PRN (18:55)
[2021-05-12] MEDS ORDERED: MEPERIDINE INJ 25 MG/ML VIAL (J2175) IV PRN (18:55)
[2021-05-12] MEDS ORDERED: ePHEDrine INJ 50 MG/ML VIAL IV STA ×2 (19:43→19:46)
[2021-05-12] MEDS ORDERED: ePHEDrine SULFATE 25 MG/5 ML(5MG/ML) SYRINGE As Ordered ONE (19:44)
[2021-05-12] MEDS ORDERED: ePHEDrine SULFATE 25 MG/5 ML(5MG/ML) SYRINGE IV STA (19:55)
[2021-05-12] MEDS ORDERED: METHYLERGONOVINE MALEATE 0.2 MG/ML VIAL (J2210) ONE (20:54)
[2021-05-12] MEDS: DOCUSATE SODIUM 100MG CAPSULE PO SCH (21:00)
[2021-05-12] MEDS: LR 1,000 ML IV SCH (23:01)
[2021-05-13] VITALS (7 sets, daily range): BP systolic 123–138; BP diastolic 66–88
[2021-05-13] MEDS: PERCOCET 5MG/325MG TAB PO PRN ×4 (00:36→19:18)
[2021-05-13] MEDS: ENOXAPARIN 80MG/0.8ML SYRINGE (J1650 PER 10MG) SC SCH ×2 (06:49→19:28)
[2021-05-13 07:04] LABS: HEMOGLOBIN 12.3 g/dl (12.0-15.5); MEAN CORPUSCULAR HEMOGLOBIN 31.8 pg (27.0-33.0); MEAN CORPUSCULAR HGB CONC 34.2 g/dl (32.0-36.5); RED BLOOD COUNT 3.87 10^6/uL (4.00-5.40); WHITE BLOOD COUNT 10.1 10^3/uL (4.0-10.0)
[2021-05-13 07:45] LABS: PLATELET COUNT, AUTOMATED 87 10^3/uL (150-450)
[2021-05-13] MEDS: LR 1,000 ML IV SCH (08:22)
[2021-05-13] MEDS: DOCUSATE SODIUM 100MG CAPSULE PO SCH ×2 (10:02→21:10)
[2021-05-13] MEDS: SIMETHICONE 80MG CHEW TAB PO PRN ×2 (10:03→21:10)
[2021-05-13] MEDS: PRENATAL VITAMINS CHEWABLE TABLET PO SCH (10:03)
[2021-05-13] MEDS ORDERED: LOVE0.6I2 SC (18:25)
[2021-05-13] MEDS ORDERED: PERCOCET PO (18:25)
[2021-05-13] MEDS ORDERED: COLA100C5 PO (18:25)
[2021-05-14] MEDS: PERCOCET 5MG/325MG TAB PO PRN ×2 (01:38→08:38)
[2021-05-14 02:00] VITALS: BP 139/82
[2021-05-14 06:00] VITALS: BP 120/64
[2021-05-14] MEDS: PRENATAL VITAMINS CHEWABLE TABLET PO SCH (08:00)
[2021-05-14] MEDS: DOCUSATE SODIUM 100MG CAPSULE PO SCH (08:00)
[2021-05-14] MEDS: ENOXAPARIN 80MG/0.8ML SYRINGE (J1650 PER 10MG) SC SCH (08:27)
[2021-05-14 10:00] VITALS: BP 134/73
== END 2021-05-14 13:41 | disposition home or self-care (01) | DRG 540 ==
LOC: M LDI 07:45 → M OBS 20:33
PROVIDERS: ADMIT Advanced Practice Midwife; ATTEND Obstetrics & Gynecology
PROC: 3E0P7GC Introduction of Other Therapeutic Substance into Female Reproductive, Via Natural or Artificial Opening (ICD-10-PCS; 2021-05-12)
PROC: 10D00Z1 Extraction of Products of Conception, Low, Open Approach (ICD-10-PCS; principal; 2021-05-12 18:00)
DX: O99.12 Other diseases of the blood and blood-forming organs and certain disorders involving the immune mechanism complicating childbirth (principal); D68.2 Hereditary deficiency of other clotting factors; Z86.718 Personal history of other venous thrombosis and embolism; O76 Abnormality in fetal heart rate and rhythm complicating labor and delivery; Z37.0 Single live birth; Z3A.39 39 weeks gestation of pregnancy; Z79.01 Long term (current) use of anticoagulants

== ENCOUNTER → 2021-07-03 | Outpatient (CLI) | payer OTHER ==
[~2021-07-03] MED LIST changes: +COLA100C5 PO; +ELIQ5TAB PO; +HEPA10009 SUBQ; +PERCOCET PO; +PROHANCE 279.3MG/ML 15ML VIAL As Ordered ONE
== END ==
LOC: M RAD 07:25
PROVIDERS: ATTEND Internal Medicine Hematology & Oncology
DX: Z79.899 Other long term (current) drug therapy (principal); R51.9 Headache, unspecified
CPT/HCPCS: 70553; A9576

== ENCOUNTER → 2021-08-01 | Outpatient (CLI) | payer OTHER ==
[~2021-08-01] MED LIST changes: +EXCETAB32 PO; -EXCETAB33 PO; -PROHANCE 279.3MG/ML 15ML VIAL As Ordered ONE
== END ==
LOC: M RAD 14:02
PROVIDERS: ATTEND Specialist
DX: I82.402 Acute embolism and thrombosis of unspecified deep veins of left lower extremity (principal)

== ENCOUNTER 2022-01-20 16:08 | Emergency (ER) | payer OTHER ==
[~2022-01-20] VITALS: Ht 162.6 cm; Wt 68.7 kg
[~2022-01-20 16:08] MED LIST changes: +TOPI1CAP2 PO
[2022-01-20] MEDS ORDERED: TOPI100T9 (16:17)
[2022-01-20 16:46] LABS: BASO % 0.4 % (0.0-1.0); EOS # 0.1 10^3/uL (0.0-0.5); EOS % 0.7 % (0.0-3.0); HEMATOCRIT 44.2 % (36.0-47.0); HEMOGLOBIN 14.5 g/dl (12.0-15.5); LYMPH # 2.3 10^3/uL (1.5-5.0); MEAN CORPUSCULAR HEMOGLOBIN 29.8 pg (27.0-33.0); MEAN CORPUSCULAR HGB CONC 32.8 g/dl (32.0-36.5); MEAN CORPUSCULAR VOLUME 90.9 fl (80.0-96.0); MONO # 0.5 10^3/uL (0.0-0.8); MONO % 7.5 % (2.0-8.0); NEUTROPHILS # 3.8 10^3/uL (1.5-8.5); NEUTROPHILS % 57.3 % (36.0-66.0); PLATELET COUNT, AUTOMATED 190 10^3/uL (150-450); RED BLOOD COUNT 4.86 10^6/uL (4.00-5.40); WHITE BLOOD COUNT 6.7 10^3/uL (4.0-10.0)
[2022-01-20 17:20] LABS: HCG, SERUM QUALITATIVE NEGATIVE (NEGATIVE)
[2022-01-20 17:23] LABS: BLOOD UREA NITROGEN 14 MG/DL (9-23); CALCIUM LEVEL 9.2 MG/DL (8.5-10.1); CARBON DIOXIDE LEVEL 22 MMOL/L (20-31); CHLORIDE LEVEL 109 MMOL/L (98-107); CREATININE FOR GFR 0.94 MG/DL (0.55-1.30); GLOMERULAR FILTRATION RATE > 60.0 (>60); GLUCOSE, FASTING 90 MG/DL (60-100); POTASSIUM SERUM 4.3 MMOL/L (3.5-5.1); SODIUM LEVEL 143 MMOL/L (136-145)
[2022-01-20] MEDS ORDERED: FAMOTIDINE 20 MG TAB PO ONE (20:40)
[2022-01-20] MEDS ORDERED: GI COCKTAIL 50ML BTL(HYOSCYAMINE/MAALOX/LIDOCAINE VISCOUS)(1:3:1) PO ONE (20:40)
[2022-01-20 22:00] LABS: CK-MB VALUE MASS < 1.0 NG/ML (<3.6); CPK CREATINE PHOSPHOKINASE 48 U/L (34-145); MB/CK RELATIVE INDEX 2.08 (< OR =4)
[2022-01-20 22:03] LABS: RSV AMPLIFICATION NEGATIVE (NEGATIVE)
[2022-01-20 22:26] VITALS: BP 118/86
== END 2022-01-20 22:31 | disposition home or self-care (01) ==
LOC: M ED 16:08
DX: R07.89 Other chest pain (principal); M19.90 Unspecified osteoarthritis, unspecified site; Z86.718 Personal history of other venous thrombosis and embolism; Z79.899 Other long term (current) drug therapy; Z79.01 Long term (current) use of anticoagulants

== ENCOUNTER → 2022-09-23 | Outpatient (REF) ==
[~2022-09-23] MED LIST changes: +FLUT1BLS4; +OMEP-173; +TOPI100T9
== END ==
LOC: M PLAIMG 14:03
PROVIDERS: ATTEND Internal Medicine
DX: R52 Pain, unspecified (principal)

== ENCOUNTER 2023-07-29 08:23 | Day surgery (SDC) | payer OTHER ==
[~2023-07-29] VITALS: Ht 162.6 cm; Wt 56.3 kg
[~2023-07-29 08:23] MED LIST changes: +DULO1CAP5 PO; +FREM225A SC; +PREG50CA3 PO; +SPIR12.9; -TOPI100T9; +TOPI100T9 PO
[2023-07-29] MEDS ORDERED: LR 1,000 ML IV SCH (08:45)
[2023-07-29 09:00] LABS: HEMATOCRIT 40.4 % (36.0-47.0); HEMOGLOBIN 13.5 g/dl (12.0-15.5); MEAN CORPUSCULAR HEMOGLOBIN 31.2 pg (27.0-33.0); MEAN CORPUSCULAR HGB CONC 33.4 g/dl (32.0-36.5); MEAN CORPUSCULAR VOLUME 93.3 fl (80.0-96.0); PLATELET COUNT, AUTOMATED 167 10^3/uL (150-450); RED BLOOD COUNT 4.33 10^6/uL (4.00-5.40); WHITE BLOOD COUNT 5.1 10^3/uL (4.0-10.0)
[2023-07-29] MEDS ORDERED: ONDANSETRON 4MG 2ML VIAL As Ordered ONE (09:53)
[2023-07-29] MEDS ORDERED: KETOROLAC 60MG 2ML VIAL As Ordered ONE (09:53)
[2023-07-29] MEDS ORDERED: LIDOCAINE 2% 100MG/5ML SDV (FOR ANES.) As Ordered ONE (09:53)
[2023-07-29] MEDS ORDERED: MIDAZOLAM INJ 2MG/2ML VIAL As Ordered ONE (09:53)
[2023-07-29] MEDS ORDERED: propofoL 200 MG/20 ML VIAL As Ordered ONE (09:53)
[2023-07-29] MEDS ORDERED: SUGAMMADEX SODIUM 500 MG/5 ML VIAL (BRIDION) As Ordered ONE (09:53)
[2023-07-29] MEDS ORDERED: fentaNYL 100 MCG/2 ML INJECTION As Ordered ONE (09:53)
[2023-07-29] MEDS ORDERED: ROCURONIUM BROMIDE 50MG/5ML VIAL As Ordered ONE (09:53)
[2023-07-29] MEDS ORDERED: dexmedeTOMIDine (4MCG/ML)200MCG/50ML BTL (PRECEDEX) As Ordered ONE (10:21)
[2023-07-29] MEDS ORDERED: ePHEDrine SULFATE 25 MG/5 ML(5MG/ML) SYRINGE As Ordered ONE (10:57)
[2023-07-29] MEDS ORDERED: ACETAMINOPHEN 1000MG 100ML IV BAG As Ordered ONE (11:05)
[2023-07-29] MEDS: SILVER NITRATE APPLICATOR (1 = QTY 10) As Ordered ONE (11:16)
[2023-07-29] MEDS ORDERED: ONDANSETRON 4MG 2ML VIAL IV PRN (11:20)
[2023-07-29] MEDS ORDERED: diphenhydrAMINE 50MG/ML VIAL IV PRN (11:20)
[2023-07-29] MEDS ORDERED: METOCLOPRAMIDE INJ 10MG/2ML VIAL IV PRN (11:20)
[2023-07-29] MEDS ORDERED: MEPERIDINE 25 MG/ML 1ML VIAL IV PRN (11:20)
[2023-07-29] MEDS ORDERED: fentaNYL 100 MCG/2 ML INJECTION IV PRN (11:20)
[2023-07-29] MEDS ORDERED: PERC5TAB12 PO (11:28)
[2023-07-29] MEDS: HYDROMORPHONE HCL 0.5 MG/ 0.5 ML SYRINGE IV PRN (11:47)
[2023-07-29] MEDS: oxyCODONE 5MG TAB PO PRN (11:47)
[2023-07-29] MEDS: LR 1,000 ML IV SCH (11:47)
[2023-07-29 12:58] VITALS: BP 117/71; TEMP 96.5; O2SAT 99
== END 2023-07-29 13:08 | disposition home or self-care (01) ==
LOC: M SDC 08:23
PROVIDERS: ATTEND Obstetrics & Gynecology
DX: Z30.2 Encounter for sterilization (principal); D68.2 Hereditary deficiency of other clotting factors; Z86.718 Personal history of other venous thrombosis and embolism; J44.9 Chronic obstructive pulmonary disease, unspecified; M19.90 Unspecified osteoarthritis, unspecified site; M54.9 Dorsalgia, unspecified; Z79.899 Other long term (current) drug therapy; Z79.01 Long term (current) use of anticoagulants; Z87.891 Personal history of nicotine dependence
CPT/HCPCS: 36415; 58661; 81025; 85027; 86850; 86900; 86901; 88302; J0131; J0665; J1100; J1170; J1885; J2250; J2405; J3010

== ENCOUNTER → 2023-08-30 | Outpatient (CLI) | payer OTHER ==
[~2023-08-30] MED LIST changes: +ISOVUE-300 61% 100ML VIAL As Ordered ONE; +LIDOCAINE 1% MDV 20ML VIAL As Ordered ONE; +PERC5TAB12 PO; +TRIAMCINOLONE ACETONIDE SUSP 40MG/ML 1ML VIAL As Ordered ONE
== END ==
LOC: M RAD 12:43
PROVIDERS: ATTEND Physician Assistant
DX: M25.551 Pain in right hip (principal)
CPT/HCPCS: 20610; 77002; J0665; J3301; Q9967

== ENCOUNTER → 2023-11-02 | Outpatient (CLI) | payer OTHER ==
[~2023-11-02] MED LIST changes: -ISOVUE-300 61% 100ML VIAL As Ordered ONE; -LIDOCAINE 1% MDV 20ML VIAL As Ordered ONE; -TRIAMCINOLONE ACETONIDE SUSP 40MG/ML 1ML VIAL As Ordered ONE
== END ==
LOC: M PAIN 13:00
PROVIDERS: ATTEND Nurse Practitioner Family
DX: M46.1 Sacroiliitis, not elsewhere classified (principal); G89.29 Other chronic pain; D68.2 Hereditary deficiency of other clotting factors; M19.90 Unspecified osteoarthritis, unspecified site; Z86.718 Personal history of other venous thrombosis and embolism; Z79.01 Long term (current) use of anticoagulants; Z79.899 Other long term (current) drug therapy; Z87.891 Personal history of nicotine dependence

== ENCOUNTER → 2024-07-26 | Outpatient (REF) | payer OTHER ==
[~2024-07-26] MED LIST changes: +AMIT100TA; +AMIT50TA; +CODE30TA PO; +TOPI-257 PO; -TOPI100T9 PO
[2024-07-28 14:22] LABS: HPV APTIMA Not Detected (Not Detected)
== END ==
LOC: M SFHCWAGY 13:03
PROVIDERS: ATTEND Obstetrics & Gynecology
DX: Z12.4 Encounter for screening for malignant neoplasm of cervix (principal)

== ENCOUNTER → 2025-01-19 | Outpatient (CLI) | payer OTHER | LOC: M WHC 09:33 | PROVIDERS: ATTEND Obstetrics & Gynecology | DX: N83.202 Unspecified ovarian cyst, left side (principal) ==

== ENCOUNTER → 2025-02-27 | Outpatient (REF) | payer OTHER ==
[2025-02-27 18:31] LABS: C REACTIVE PROTEIN QUANTITATIV 0.59 MG/DL (<1.0)
[2025-02-27 18:35] LABS: TOTAL 25(OH) VITAMIN D 16.8 NG/ML (20.0-100.0)
== END ==
LOC: M SFHCRHEU 14:35
PROVIDERS: ATTEND Internal Medicine
DX: M25.50 Pain in unspecified joint (principal); R53.83 Other fatigue